=== PATIENT | female | born 1985 | race Caucasian/White ===

== ENCOUNTER 2022-04-24 09:26 | Outpatient (CLI) | payer BC, SELFPAY ==
--- NOTE | 2022-04-25 21:15 | WPDHOLTEREM ---
Holter/Event Monitor Holter/Event Monitor Date of procedure: 04/25/22 Holter/Event Procedure: 24 Hr Holter Monitor Diagnosis: Palpitations Indications: Young female with palpitations Image/Tracing Quality: Good Finding: The patient was monitored for 24 hours. The underlying rhythm was sinus with a minimum heart rate of 48 beats per minute, average heart rate of 81 beats per minute and a maximum heart rate of 135 beats per minute. Rare PVCs were seen with a 0.6% burden. Frequent APCs were noted with a 4.5% burden. There was no atrial fibrillation, SVT, ventricular tachycardia, pauses or AV block. The patient complained of heart palpitations at 11:12 a.m.. She had an isolated APC and a ventricular couplet. She had palpitations watching TV at 12:56 p.m., at which time she was in sinus rhythm with frequent PACs. Between 2:30 and 3:00 p.m. she had help heart palpitations and she had frequent APCs noted. At around 11:00 p.m. she also had racing heartbeats and she was in sinus rhythm with a rate of 64, and frequent APCs. Conclusion: Frequent APCs, 4.5% burden. Rare PVCs. Symptoms correlated with APCs.
== END 2022-04-24 09:27 | disposition home or self-care (01) ==
PROVIDERS: Visit Provider Obstetrics & Gynecology
DX: R00.2 Palpitations (principal)
CPT/HCPCS: 93225; 93226

== ENCOUNTER 2022-09-25 15:36 | Inpatient (IN) | payer BC, SELFPAY ==
[2022-09-25] VITALS (12 sets, daily range): BP systolic 117–138; BP diastolic 59–90; PULSE 79–102; TEMP 36.8; BMI 24.9
--- NOTE | 2022-09-25 15:36 | LDADM ---
This patient, Tawanna Mobley, was admitted to Labor/Delivery/Recovery 104 on 09/25/22 at 15:36. Plans for labor, pain management and were discussed with patient. Patient/family oriented to hospital policies and general routines including ID bracelet, bed and alarms, visiting hours, pain management, procedures, bathroom and other care routines, personal items, smoking policy, room service/diet and guest tray routines, infant security routines, and visiting hours. Patient/Family are encouraged to report perceived risks to care and to ask questions if they do not understand what they are told or what they should do. See OBIX for further documentation.
[2022-09-25 16:28] LABS: Basophils Percent Auto 0.4 % (0.2-1.2); Eosinophils Absolute Auto 0.1 K/mm3 (0-0.3); Eosinophils Percent Auto 0.7 % (0-4.4); Hematocrit 37.2 % (37.0-47.0); Hemoglobin 12.4 g/dL (12.0-15.0); Immature Granulocyte Absolute 0.03 K/mm3 (0.00-0.031); Immature Granulocyte Percent A 0.3 % (0-0.5); Lymphocytes Absolute Auto 1.57 K/mm3 (0.9-3.2); Lymphocytes Percent Auto 17.4 % (18.3-44.2); Mean Corpuscular HGB Conc 33.3 g/dl (32-36); Mean Corpuscular Hemoglobin 29.5 pg (26-34); Mean Corpuscular Volume 88.4 fl (80-100); Mean Platelet Volume 11.3 fl (7.4-10.4); Monocytes Absolute Auto 0.8 K/mm3 (0.1-0.6); Neutrophils Absolute Auto 6.5 K/mm3 (1.3-6.7); Neutrophils Percent Auto 72.2 % (45.5-73.1); Platelet Count Result 212 k/mm3 (150-375); Red Blood Count 4.21 M/mm3 (4.2-5.4); Red Cell Distribution Width 13.1 % (11.5-14.5)
[2022-09-25] MEDS: OXYTOCIN 30 UNITS/NS 500 ML 30 UNITS/500 ML BAG IV CONT (16:43)
[2022-09-25] MEDS: LACTATED RINGERS 1,000 ML 125 ML IV CONT (16:43)
--- NOTE | 2022-09-25 23:19 | WPDOBADMIT ---
Obstetrics - Admit Note Admission Note: record reviewed. No pertinent additions to the history and/or any subsequent changes in the physical findings that are not consistent with the expected course of the were found. IOL, 39.5 weeks gestation, anticipate vaginal delivery Additions to the history and/or subsequent changes in the physical findings follow. None.
--- NOTE | 2022-09-25 23:20 | PM.OBPRVD ---
OB - Delivery Note Procedure Delivery date: 09/25/22 Procedure: vaginal delivery Induction method: Per Pitocin Protocol Delivery monitor: External FHT and External Uterine Route of delivery: Episiotomy description: None Laceration Description: None Specimen: No Quantitative Blood Loss (ml): 95 Anesthesia type: None Disposition: Floor Mathias Baby Date of : 09/25/22 Time of : 23:01 Weeks of gestation at delivery: 39 Infant gender: Female Weight (pounds): 7 Weight (ounces): 5 presentation: vertex position: Left Occiput Anterior Placenta delivery description: Spontaneous Cord Vessel Description: 3 Vessels, Clamped/Cut and Delayed Cord Clamping score one minute: 9 score five minutes: 9 Narrative: mother and baby skin to skin in stable condition
[2022-09-25] MEDS: OXYTOCIN 30 UNITS/NS 500 ML 30 UNITS/500 ML BAG 125 UNITS IV CONT (23:42)
[2022-09-26] VITALS (12 sets, daily range): BP systolic 101–138; BP diastolic 59–86; PULSE 65–97; RESP 16–18; TEMP 36.6–37.3; O2SAT 96–100
[2022-09-26] MEDS: IBUPROFEN 600 MG TABLET PO ×3 (01:15→17:43)
[2022-09-26 05:38] LABS: Hematocrit 31.8 % (37.0-47.0); Hemoglobin 10.6 g/dL (12.0-15.0)
--- NOTE | 2022-09-26 07:34 | PM.OBPNVD ---
OB - PN: Subj Subjective Date/time seen: 09/26/22 07:34 vaginal delivery day 1 OB - PN: Obj Data Labs 09/26/22 04:54 Labs: Laboratory Results - last 24 hr 09/25/22 09/25/22 09/26/22 16:06 16:06 04:54 WBC 9.0 RBC 4.21 Hgb 12.4 10.6 L Hct 37.2 31.8 L MCV 88.4 MCH 29.5 MCHC 33.3 RDW 13.1 Plt Count 212 MPV 11.3 H Immature Gran % (Auto) 0.3 Neut % (Auto) 72.2 Lymph % (Auto) 17.4 L [place] % (Auto) 9.0 H Eos % (Auto) 0.7 Baso % (Auto) 0.4 Lymph # (Auto) 1.57 [place] # (Auto) 0.8 H Eos # (Auto) 0.1 Baso # (Auto) 0.0 Abs Immat Gran (auto) 0.03 Absolute Neuts (auto) 6.5 Absolute Nucleated RBC 0.0 Nucleated RBC % 0.0 Blood Type O Positive Antibody Screen Negative OB - PN A/P Plan day: 1 Time Spent With Patient Time: Total time spent is greater than 50% in coordination of care (as documented) at patient's floor/unit and/or counseling patient: Review of Systems Review of Systems: All systems reviewed & are unremarkable except as noted in HPI and below Exam Const: General: cooperative, healthy appearing and comfortable
[2022-09-26] MEDS: MULTIVIT/MIN/PREN/FOL AC/IRON TABLET 1 TAB PO (09:31)
[2022-09-26] MEDS: DOCUSATE SODIUM 100 MG CAPSULE PO (09:31)
[2022-09-26 15:50] LABS: Rapid Plasma Reagin Non-Reactive (NonReactive)
--- NOTE | 2022-09-27 06:10 | PM.OBPNVD ---
OB - PN: Subj Subjective Date/time seen: 09/27/22 06:10 s/p vag delivery day 2, OB - PN: Obj Data Labs 09/26/22 04:54 Labs: Laboratory Results - last 24 hr 09/25/22 16:06 RPR Non-reactive OB - PN A/P Plan day: 2 Plan: routine care and discharge home Time Spent With Patient Time: Total time spent is greater than 50% in coordination of care (as documented) at patient's floor/unit and/or counseling patient: Review of Systems Review of Systems: All systems reviewed & are unremarkable except as noted in HPI and below Exam Const: General: cooperative and healthy appearing Chest: Chest palpation & inspection: normal inspection of the chest
--- NOTE | 2022-09-27 06:13 | PM.OBDSVD ---
DS: Admitting Diagnosis Discharge Date 09/27/22 Admitting Diagnosis IOL OB - DS: Summary OB Procedures : None OB Procedures Intrapartum: Spontaneous Vag Delivery OB Procedures: : None Time Spent with Patient Time attestation: Total time spent providing and/or coordinating discharge services: DS: Data Data Completed and Pending Labs on day of discharge: Labs from last 24 hours 09/25/22 16:06 RPR Non-reactive Discharge Plan Discharge Attending physician on discharge: Yanira Schuler Discharging Clinician: Karey Daigle Patient Disposition: Home, Self-Care Activity: pelvic rest Diet: regular Patient Instructions: Antibiotic Form Stand Alone Forms: General Discharge Information Follow-up/Referrals: Karey Daigle, CNM [Certified Nurse Egg Producer] - 4 Weeks Discharge Medications: New ibuprofen 600 mg Tablet 600 mg PO Q6H PRN (Reason: Cramping) Qty: 30 0RF Continued #2 Tablet 1 tablet PO DAILY Discontinued Adult Low Dose Aspirin 81 mg Tablet 81 mg PO DAILY Date of admission: 09/25/22 15:36 Primary Care Provider: NeelCaryn Admitting Provider: Yanira Schuler Attending physician on admission: Yanira Schuler Condition: Stable
--- NOTE | 2022-09-27 09:00 | PC.NURSE ---
Patient viewed the discharge video Mother & Baby Care, The First Two Weeks . Patient was given the opportunity and encouraged to ask questions. Patient verbalized understanding of information shared and has been given the mother/baby guide for home reference.
[2022-09-27 09:10] VITALS: BP 111/75; PULSE 84; RESP 18; TEMP 36.9; O2SAT 98
[2022-09-27] MEDS: MULTIVIT/MIN/PREN/FOL AC/IRON TABLET 1 TAB PO (09:14)
[2022-09-27] MEDS: DOCUSATE SODIUM 100 MG CAPSULE PO (09:14)
[2022-09-27] MEDS: IBUPROFEN 600 MG TABLET PO (09:14)
--- NOTE | 2022-09-27 18:40 | PM.OBDSVD ---
DS: Admitting Diagnosis Discharge Date 09/27/22 Admitting Diagnosis IOL OB - DS: Summary OB Procedures : None OB Procedures Intrapartum: Spontaneous Vag Delivery OB Procedures: : None Time Spent with Patient Time attestation: Total time spent providing and/or coordinating discharge services: Discharge Plan Discharge Attending physician on discharge: Yanira Schuler Consulting providers: Karey Daigle Discharging Clinician: Karey Daigle Patient Disposition: Home, Self-Care Activity: pelvic rest Diet: regular Discharge Instructions: Education: Mom and Baby Guide Given to: Mother Follow-Up: Call your delivering provider's office for an appointment to be seen in: 4 Weeks BREAST CARE: * Wear a snug supportive bra. * For engorgement discomfort: Breast Feeding: * Apply warm moist washcloths * Express milk as needed to relieve engorgement * Wear loose clothing * For sore nipples: * Identify correct latch-on * Apply warm moist washcloths before and after nursing * Air dry nipples after nursing * May apply Lansinoh cream to nipples PERINEAL CARE: * Until bleeding stops, use your chase bottle after urinating * Change your pad frequently throughout the day * You may take sitz baths several times a day (fill your bathtub with warm water and soak for 20 minutes.) Do NOT bathe in the water * No tub baths until seen by your physician - You may shower ACTIVITY: * Rest as much as possible. * Do not exercise or lift anything heavier than your baby (such as laundry or other children.) * Avoid stairs or driving as much as possible. * Do not put anything into the vagina. No douching, tampons, or sexual activity until seen by physician. NOTIFY PHYSICIAN IF YOU HAVE ANY QUESTIONS OR IF ANY OF THE FOLLOWING SYMPTOMS OCCUR: * If your vaginal bleeding becomes foul smelling. * If your vaginal bleeding becomes more heavy than a period or if your bleeding changes from pink to bright red. However, you may pass an occasional walnut-sized clot once or twice for the first week . * If you experience a sharp, shooting pain in your calves. * If you discover a hard, reddened area on your breast or if you experience flu-like symptoms. DIET: * Eat regular, well-balanced meals. * Drink plenty of fluids daily. If , drink to thirst. Stand Alone Forms: General Discharge Information Follow-up/Referrals: Karey Daigle CNM [Certified Nurse Managing Principal] - 4 Weeks Discharge Medications: New ibuprofen 600 mg Tablet 600 mg PO Q6H PRN (Reason: Cramping) Qty: 30 0RF Continued prenat.vits,kendrick,[id number] Tablet 1 tablet PO DAILY Discontinued Adult Low Dose Aspirin 81 mg Tablet 81 mg PO DAILY Date of admission: 09/25/22 15:36 Primary Care Provider: NeelCaryn Admitting Provider: Yanira Schuler Attending physician on admission: Yanira Schuler Condition: Stable
--- NOTE | 2022-09-29 08:56 | P.DS_ITS ---
DS: Admitting Diagnosis Discharge Date 09/27/22 Admitting Diagnosis IOL OB - DS: Summary OB Procedures : None OB Procedures Intrapartum: Spontaneous Vag Delivery OB Procedures: : None Time Spent with Patient Time attestation: Total time spent providing and/or coordinating discharge services: Discharge Plan Discharge Attending physician on discharge: Yanira Schuler Consulting providers: Karey Daigle Discharging Clinician: Karey Daigle Patient Disposition: Home, Self-Care Activity: pelvic rest Diet: regular Discharge Instructions: Education: Mom and Baby Guide Given to: Mother Follow-Up: Call your delivering provider's office for an appointment to be seen in: 4 Weeks BREAST CARE: * Wear a snug supportive bra. * For engorgement discomfort: Breast Feeding: * Apply warm moist washcloths * Express milk as needed to relieve engorgement * Wear loose clothing * For sore nipples: * Identify correct latch-on * Apply warm moist washcloths before and after nursing * Air dry nipples after nursing * May apply Lansinoh cream to nipples PERINEAL CARE: * Until bleeding stops, use your chase bottle after urinating * Change your pad frequently throughout the day * You may take sitz baths several times a day (fill your bathtub with warm water and soak for 20 minutes.) Do NOT bathe in the water * No tub baths until seen by your physician - You may shower ACTIVITY: * Rest as much as possible. * Do not exercise or lift anything heavier than your baby (such as laundry or other children.) * Avoid stairs or driving as much as possible. * Do not put anything into the vagina. No douching, tampons, or sexual activity until seen by physician. NOTIFY PHYSICIAN IF YOU HAVE ANY QUESTIONS OR IF ANY OF THE FOLLOWING SYMPTOMS OCCUR: * If your vaginal bleeding becomes foul smelling. * If your vaginal bleeding becomes more heavy than a period or if your bleeding changes from pink to bright red. However, you may pass an occasional walnut- sized clot once or twice for the first week . * If you experience a sharp, shooting pain in your calves. * If you discover a hard, reddened area on your breast or if you experience flu- like symptoms. DIET: * Eat regular, well-balanced meals. * Drink plenty of fluids daily. If , drink to thirst. Stand Alone Forms: General Discharge Information Follow-up/Referrals: Karey Daigle CNM [Certified Nurse Quality Assurance Supervisor [place]] - 4 Weeks Discharge Medications: New ibuprofen 600 mg Tablet 600 mg PO Q6H PRN (Reason: Cramping) Qty: 30 0RF Continued prenat.vits,kendrick,[id number] Tablet 1 tablet PO DAILY Discontinued Adult Low Dose Aspirin 81 mg Tablet 81 mg PO DAILY Date of admission: 09/25/22 15:36 Primary Care Provider: NeelCaryn Admitting Provider: Yanira Schuler Attending physician on admission: Yanira Schuler Condition: Stable
== END 2022-09-27 11:32 | disposition home or self-care (01) | DRG 807 ==
LOC: ANHLDR 15:42 → ANHOB2 09-26 01:54
PROVIDERS: Advanced Practice Midwife; Admitting Provider Obstetrics & Gynecology; PCP Family Medicine; Visit Provider Obstetrics & Gynecology
DX: O62.3 Precipitate labor (principal); Z37.0 Single live birth; Z3A.39 39 weeks gestation of pregnancy
CPT/HCPCS: 36415; 85014; 85018; 85025; 86592; 86850; 86900; 86901; A9270; J2590; J2795; J7120